=== PATIENT | female | born 1965 | race Hispanic/Latino ===

== ENCOUNTER 2019-06-23 12:34 | Emergency (ER) | payer SELFPAY ==
[2019-06-23] MEDS ORDERED: ORPHENADRINE CITRATE 30 MG/ML ML ONE (13:09)
[2019-06-23] MEDS ORDERED: DEXAMETHASONE SOD PHOSPHATE 10MG/ML 1ML VIAL ONE (13:09)
[2019-06-23] MEDS ORDERED: IBUPROFEN 600 MG TABLET ONE (13:09)
== END 2019-06-23 13:46 | disposition home or self-care (01) ==
LOC: EDH 12:34
DX: G24.3 Spasmodic torticollis (principal); M62.838 Other muscle spasm
CPT/HCPCS: 96372 ×2; 99284; J1100; J2360

== ENCOUNTER 2020-03-16 12:24 | Emergency (ER) | payer SELFPAY ==
[2020-03-16] MEDS ORDERED: ORPHENADRINE CITRATE 30 MG/ML ML ONE (13:00)
[2020-03-16] MEDS ORDERED: KETOROLAC TROMETHAMINE 60 MG/2 ML VIAL ONE (13:01)
== END 2020-03-16 16:12 | disposition home or self-care (01) ==
LOC: EDH 12:24
DX: S09.90XA Unspecified injury of head, initial encounter (principal); I10 Essential (primary) hypertension; E78.00 Pure hypercholesterolemia, unspecified; W18.39XA Other fall on same level, initial encounter; Y93.89 Activity, other specified; Y92.89 Other specified places as the place of occurrence of the external cause; Y99.8 Other external cause status
CPT/HCPCS: 70450; 71045; 96372 ×2; 99284; J1885; J2360